=== PATIENT | male | born 1985 | race Caucasian/White ===

== ENCOUNTER 2020-11-25 00:12 | Emergency (ER) | payer OTHER ==
[2020-11-25 01:14] LABS: BASOPHIL 0.6 % (0-2); EOSINOPHIL 5.8 % (0-5); HCT 43.4 % (42.0-52.0); HGB 15.1 g/dl (13.2-18.0); LYMPHOCYTE 27.7 % (15-48); MCH 31.4 pg (25.0-31.0); MCHC 34.8 g/dL (32.0-36.0); MCV 90.2 fL (78.0-100.0); MPV 10.4 fL (6.0-9.5); NEUTROPHIL 53.5 % (41-80); NRBC 0; PLT 268 K/uL (150-400); RBC 4.81 M/uL (4.70-6.00); RDW 11.9 % (11.5-14.0); WBC 9.3 K/uL (4.0-10.5)
[2020-11-25 01:32] LABS: ALBUMIN 3.7 g/dL (3.4-5.0); BILIRUBIN - TOTAL 0.3 mg/dL (0.2-1.0); BUN/CREAT RATIO (CALC) 10.5 RATIO; CREATININE 0.86 mg/dL (0.67-1.17); GLOBULIN (CALCULATION) 3.6 g/dL; POTASSIUM 3.5 mmol/L (3.5-5.1); TOTAL PROTEIN 7.3 g/dL (6.4-8.2)
[2020-11-25] MEDS ORDERED: MEDROL 4MG DOSEP4 MG PO ×2 (01:38→01:48)
[2020-11-25] MEDS ORDERED: ALBUTEROL0.5 ML/AMP INH ×2 (01:38→01:48)
[2020-11-25] MEDS ORDERED: VENTOLIN HFA18 GM INH ×2 (01:38→01:48)
== END 2020-11-25 02:00 | disposition home or self-care (01) ==
LOC: FER 00:12
PROVIDERS: Emergency Medicine
DX: R06.02 Shortness of breath (principal); R06.2 Wheezing; R50.9 Fever, unspecified; Z87.891 Personal history of nicotine dependence; Z87.09 Personal history of other diseases of the respiratory system
CPT/HCPCS: 36415; 71045; 80053; 84484; 85025; 85379; 93005; 94664; J2930